=== PATIENT | female | born 2000 | race Asian ===

== ENCOUNTER 2024-04-06 20:01 | Emergency (ER) | payer BC ==
[~2024-04-06] VITALS: Ht 152.4 cm; Wt 54.9 kg
[2024-04-06 20:11] VITALS: BP 138/79; PULSE 73; RESP 18; TEMP 98; O2SAT 96
[2024-04-06] MEDS ORDERED: KEN.025C TP (20:31)
[2024-04-06] MEDS ORDERED: PRED20TA5 PO (20:31)
[2024-04-06 20:49] VITALS: BP 138/79; PULSE 73; RESP 18; TEMP 98; O2SAT 96
== END 2024-04-06 20:49 | disposition home or self-care (01) ==
LOC: MED 20:01
DX: L30.1 Dyshidrosis [pompholyx] (principal); T50.905A Adverse effect of unspecified drugs, medicaments and biological substances, initial encounter; Z79.899 Other long term (current) drug therapy; Y92.89 Other specified places as the place of occurrence of the external cause
CPT/HCPCS: 99283